=== PATIENT | female | born 1985 | race Caucasian/White ===

== ENCOUNTER 2022-07-22 12:15 | Inpatient (IN) | payer BC ==
[2022-07-22] MEDS ORDERED: Lidocaine 1% (PF) 30 ML VIAL SC PRN (13:23)
[2022-07-22] MEDS ORDERED: Promethazine HCl 25 MG/ML VIAL IM PRN (13:23)
[2022-07-22] MEDS ORDERED: hydrALAZINE 20 MG/ML VIAL SLOW IVP PRN ×2 (13:23→16:46)
[2022-07-22] MEDS ORDERED: Fentanyl 100 MCG/2 ML VIAL SLOW IVP PRN (13:23)
[2022-07-22] MEDS ORDERED: HYDROcodone/Acetaminophen 5/325 mg Tablet PO PRN ×3 (13:23→16:46)
[2022-07-22] MEDS ORDERED: Tranexamic Acid 1,000 MG/10 ML VIAL IVP PRN (13:23)
[2022-07-22] MEDS ORDERED: Ondansetron PF 4 MG/2 ML Vial IVP PRN ×2 (13:23→16:46)
[2022-07-22] MEDS ORDERED: Misoprostol 200 MCG TAB PR PRN (13:23)
[2022-07-22] MEDS ORDERED: Diphenoxylate HCl/Atropine Tablet PO PRN (13:23)
[2022-07-22] MEDS ORDERED: Carboprost 250 MCG/ML AMP IM PRN (13:23)
[2022-07-22] MEDS ORDERED: Ibuprofen 800 MG TAB PO PRN (13:23)
[2022-07-22] MEDS ORDERED: Methylergonovine 0.2 MG/ML VIAL IM PRN (13:23)
[2022-07-22] MEDS ORDERED: Acetaminophen 500 MG TAB PO PRN (13:23)
[2022-07-22] MEDS ORDERED: NS w/ Oxytocin 30 units 500 ML IV SCH (13:30)
[2022-07-22] MEDS ORDERED: Betamet Acet/Betamet Na Ph 30 MG/5 ML VIAL IM SCH (13:30)
[2022-07-22] MEDS ORDERED: Penicillin G Potassium 5 MILL.UNITS in Sodium Chloride 0.9% 100 ML IVPB SCH (13:30)
[2022-07-22] MEDS ORDERED: Lactated Ringer's 1,000 ML IV SCH (13:30)
[2022-07-22 14:18] LABS: Hemoglobin 11.9 g/dL (12.0-15.5); Mean Corpuscular HGB CONC 33.9 g/dL (32.0-36.0); Mean Corpuscular Hemoglobin 30.1 pg (27.0-33.0); Mean Corpuscular Volume 88.6 fl (81.6-98.3); Mean Platelet Volume 9.3 fl (7.4-10.4); Platelet Count 282 10x3/uL (150-450); RBC Distribution Width 12.6 % (11.5-14.5); Red Blood Cell (RBC) Count 3.96 10x6/uL (3.90-5.03); White Blood Cell (WBC) Count 12.6 10x3/uL (3.5-10.5)
[2022-07-22] MEDS ORDERED: Fentanyl 2 mcg/Bup 0.1% Cadd 100 ML ONE (14:21)
[2022-07-22 14:52] LABS: HBSAg Index 0.13 S/CO (0-0.99); Hep B Surf Ag - L&D Non-Reactive S/CO (NonReactive); Syphilis Antibody Nonreactive (Nonreactive); Syphilis Antibody Index 0.03 S/CO (<1.00 Non-Reactive)
[2022-07-22] MEDS ORDERED: NS w/ Oxytocin 30 units 500 ML ONE (15:26)
[2022-07-22] MEDS ORDERED: Benzocaine-Menthol 82.5 ML CAN TOP PRN (16:46)
[2022-07-22] MEDS ORDERED: Boostrix 0.5 ML (Tdap) VIAL (>/=7 yrs of age) IM ONE (16:46)
[2022-07-22] MEDS ORDERED: Bisacodyl 10 MG SUPP PR PRN (16:46)
[2022-07-22] MEDS ORDERED: Milk Of Magnesia 30 ML UDCUP PO PRN (16:46)
[2022-07-22] MEDS ORDERED: Preparation H Ointment 28 GM TUBE PR PRN (16:46)
[2022-07-22] MEDS ORDERED: diphenhydrAMINE 25 MG CAP PO PRN (16:46)
[2022-07-22] MEDS ORDERED: Lanolin Ointment 7 GM TUBE TOP PRN (16:46)
[2022-07-22] MEDS ORDERED: Penicillin G 2.5 MILL.units 2.5 MILL.UNITS in Premix Bag 1 BAG IVPB SCH (17:30)
[2022-07-22] MEDS: Docusate 100 MG CAP PO SCH (22:37)
[2022-07-22] MEDS: Ibuprofen 800 MG TAB PO SCH (22:37)
[2022-07-23] MEDS: Ibuprofen 800 MG TAB PO SCH ×3 (05:25→22:09)
[2022-07-23] MEDS: Prenatal Vitamin 1 TAB PO SCH (09:35)
[2022-07-23] MEDS: Docusate 100 MG CAP PO SCH ×2 (09:35→22:10)
[2022-07-23] MEDS: Ferrous Sulfate 325 MG TAB PO SCH ×2 (09:42→18:49)
[2022-07-23] MEDS ORDERED: Simethicone Chewable 80 MG TAB PO PRN (22:38)
[2022-07-24] MEDS: Ibuprofen 800 MG TAB PO SCH ×2 (05:25→16:00)
[2022-07-24 09:55] VITALS: BP 135/74; TEMP 98.7
[2022-07-24] MEDS: Prenatal Vitamin 1 TAB PO SCH (10:02)
[2022-07-24] MEDS: Docusate 100 MG CAP PO SCH (10:02)
[2022-07-24] MEDS: Ferrous Sulfate 325 MG TAB PO SCH ×2 (11:32→16:43)
== END 2022-07-24 18:45 | disposition home or self-care (01) | DRG 807 ==
LOC: CSHLD/OP 12:15 → CSHLD 15:46 → CSHPED 18:50
PROVIDERS: ADMIT Student in an Organized Health Care Education/Training Program; ATTEND Student in an Organized Health Care Education/Training Program
PROC: 10E0XZZ Delivery of Products of Conception, External Approach (ICD-10-PCS; principal; 2022-07-22)
PROC: 0HQ9XZZ Repair Perineum Skin, External Approach (ICD-10-PCS; 2022-07-22)
DX: O60.14X0 Preterm labor third trimester with preterm delivery third trimester, not applicable or unspecified (principal); Z37.0 Single live birth; Z3A.34 34 weeks gestation of pregnancy; O99.353 Diseases of the nervous system complicating pregnancy, third trimester; G43.909 Migraine, unspecified, not intractable, without status migrainosus; O70.0 First degree perineal laceration during delivery; Z79.899 Other long term (current) drug therapy
CPT/HCPCS: 36415; 51702; 85027; 86780; 86850; 86900; 86901; 87340; 88307; 99285; J0702; J2540; J2590; J3490

== ENCOUNTER 2025-01-06 09:06 | Outpatient (CLI) | payer BC | END 2025-01-06 09:07 | disposition home or self-care (01) | LOC: CSHSLEEP 09:06 | PROVIDERS: ATTEND Family Medicine | DX: G47.33 Obstructive sleep apnea (adult) (pediatric) (principal); R53.83 Other fatigue; R41.89 Other symptoms and signs involving cognitive functions and awareness; E66.9 Obesity, unspecified; Z68.30 Body mass index [BMI] 30.0-30.9, adult; R06.83 Snoring | CPT/HCPCS: 95810 ==